=== PATIENT | male | born 1985 | race Hispanic/Latino ===

== ENCOUNTER 2017-08-24 17:27 | Emergency (ER) | payer SELFPAY ==
[2017-08-24] MEDS ORDERED: ASPIRIN PO ONE (17:38)
[2017-08-24 18:02] LABS: Basophils % (Auto) 0.8 % (0.0-1.8); Eosinophils # (Auto) 0.2 K/mm3 (0.0-0.4); Eosinophils % (Auto) 4.3 % (0.0-4.3); Hemoglobin 15.6 gm/dl (11.8-15.2); Lymphocytes # (Auto) 2.3 K/mm3 (1.2-5.4); Lymphocytes % (Auto) 44.4 % (13.4-35.0); Mean Corpuscular HGB Conc 33 % (32-34); Mean Corpuscular Hemoglobin 29 pg (28-32); Mean Corpuscular Volume 87 fl (84-94); Monocytes # (Auto) 0.6 K/mm3 (0.0-0.8); Monocytes % (Auto) 10.7 % (0.0-7.3); Platelet Count 216 K/mm3 (140-440); Red Cell Distribution Width 14.9 % (13.2-15.2)
[2017-08-24 18:19] LABS: BUN/Creatinine Ratio 24; Blood Urea Nitrogen 22 mg/dL (9-20); Calcium 9.9 mg/dL (8.4-10.2); Hemolysis Index 14
--- NOTE | 2017-08-24 21:17 | Emergency Department Report ---
ED General Adult HPI - General Chief complaint: Chest Pain Stated complaint: DIZZY/CHEST PRESSURE/WEAKNESS Time Seen by Provider: 08/24/17 21:01 Source: patient Mode of arrival: Ambulatory Limitations: Physical Limitation - History of Present Illness Initial comments: 32-year-old with some intermittent dizzy spells no black or bloody stool, does have history of opiate abuse takes Xanax for panic attacks. He is here for several complaints dizzy spells off-and-on for a week no black or bloody stool stasis was standing blood is not orthostatic now, also gets intermittent positional spinning and denies any recent alcohol and denies any recent tobacco and does have intermittent history of previous questionable other substances normal bowel no focal neuro complaints problems except he is constipated no syncope -: Gradual, days(s), unknown Radiation: non-radiation Associated Symptoms: weakness. denies: confusion, chest pain, cough, diaphoresis, fever/chills, headaches, loss of appetite, malaise, nausea/vomiting , rash, seizure, shortness of breath, syncope - Related Data Allergies Allergy/AdvReac Type Severity Reaction Status Date / Time morphine Allergy Unknown Verified 08/24/17 17:31 ED Review of Systems ROS: Stated complaint: DIZZY/CHEST PRESSURE/WEAKNESS Other details as noted in HPI Comment: All other systems reviewed and negative Constitutional: weakness. denies: chills, diaphoresis, fever, malaise Respiratory: denies: cough, orthopnea, shortness of breath, SOB with exertion, SOB at rest, stridor, wheezing Cardiovascular: denies: chest pain, palpitations, dyspnea on exertion, orthopnea , syncope, paroxysmal nocturnal dyspnea Gastrointestinal: denies: hematemesis, melena, hematochezia Musculoskeletal: denies: arthralgia, myalgia Neurological: denies: confusion, abnormal gait, vertigo Psychiatric: anxiety. denies: auditory hallucinations, visual hallucinations, homicidal thoughts, suicidal thoughts ED Past Medical Hx - Past Medical History Additional medical history: ANXIETY - Surgical History Past Surgical History?: No - Social History Smoking Status: Former Smoker Substance Use Type: None ED Physical Exam - General Limitations: Physical Limitation General appearance: alert, in no apparent distress, anxious - Head Head exam: Present: atraumatic, normocephalic - Eye Eye exam: Present: PERRL, EOMI Pupils: Present: mydriatic - ENT ENT exam: Present: normal exam, normal orophraynx - Neck Neck exam: Present: normal inspection. Absent: tenderness, meningismus - Respiratory Respiratory exam: Present: normal lung sounds bilaterally. Absent: respiratory distress, wheezes, rales, rhonchi, stridor, chest wall tenderness, accessory muscle use, decreased breath sounds, prolonged expiratory - Cardiovascular Cardiovascular Exam: Present: regular rate, normal rhythm, normal heart sounds. Absent: systolic murmur, diastolic murmur, rubs, gallop - GI/Abdominal GI/Abdominal exam: Present: soft. Absent: distended, tenderness, guarding, rebound, rigid, mass, pulsatile mass - Extremities Exam Extremities exam: Present: normal inspection, normal capillary refill. Absent: pedal edema, joint swelling, calf tenderness - Back Exam Back exam: Present: normal inspection. Absent: CVA tenderness (L), muscle spasm , paraspinal tenderness, vertebral tenderness - Neurological Exam Neurological exam: Present: oriented X3, CN II-XII intact. Absent: alert, motor sensory deficit - Skin Skin exam: Absent: diaphoretic, erythema, urticaria, vesicles, petechiae ED Course Vital Signs 08/24/17 17:33 Temperature 97.8 F Pulse Rate 91 H Respiratory 18 Rate Blood Pressure 146/82 O2 Sat by Pulse 100 Oximetry ED Medical Decision Making - Lab Data Result diagrams: 08/24/17 17:47 08/24/17 17:47 - EKG Data EKG shows normal: sinus rhythm - EKG Data Interpretation: no acute changes 08/24/17 22:21 No ischemic change - Radiology Data Radiology results: report reviewed - Medical Decision Making Patient is not orthostatic CT has no acute process EKG is normal sinus rhythm st -t changes, symptoms are vague and nonspecific does likely represent a positional vertigo. We started her on meclizine symptoms may also be multifactorial given his recent and intermittent drug use with his panic attacks. He is stable at this point of discharge. no emergent cardiopulmonary or neurologic processes identified that will require admission or further workup at this time he is at normal vital signs normal neuro exam, no cerebellar findings and nl ct, stabl eoutpt f/u Critical care attestation.: If time is entered above; I have spent that time in minutes in the direct care of this critically ill patient, excluding procedure time. ED Disposition Clinical Impression: Dizziness, Vertigo Disposition: DC-01 TO HOME OR SELFCARE Is pt being admited?: No Condition: Stable Instructions: Vertigo (ED), Dizziness (ED) Additional Instructions: medication as and instructed return If New Alarming Symptoms See That Doctor Listed Referrals: MARIPOSA HOLLINS MD [Primary Care Provider] - 3-5 Days Time of Disposition: 22:25
[2017-08-24] MEDS ORDERED: ANTIVERT PO ONE (21:19)
--- NOTE | 2017-08-24 21:44 | Cat Scan Report ---
FINAL REPORT EXAM: CT HEAD/BRAIN WO CON HISTORY: dizzy TECHNIQUE: Noncontrast CT axial images of the brain. PRIORS: None. FINDINGS: No parenchymal mass, mass effect, hemorrhage, midline shift or hydrocephalus. No evidence of acute cortical infarct. No abnormal, extra-axial fluid or air collection. Osseous calvarium grossly intact. IMPRESSION: 1. No acute intracranial findings.
[2017-08-24] MEDS ORDERED: XANAX PO ONE (23:12)
[2017-08-24 23:58] VITALS: BP 121/79
== END 2017-08-25 00:02 | disposition home or self-care (01) ==
LOC: ED 17:27
DX: R42 Dizziness and giddiness (principal); R53.1 Weakness
CPT/HCPCS: 36415; 70450; 80048; 84484; 85025; 93005; 93010

== ENCOUNTER 2017-08-28 11:53 | Emergency (ER) | payer OTHER ==
[2017-08-28 13:58] LABS: Basophils % (Auto) 0.7 % (0.0-1.8); Eosinophils # (Auto) 0.1 K/mm3 (0.0-0.4); Eosinophils % (Auto) 2.3 % (0.0-4.3); Hemoglobin 15.4 gm/dl (11.8-15.2); Lymphocytes % (Auto) 37.8 % (13.4-35.0); Mean Corpuscular HGB Conc 33 % (32-34); Mean Corpuscular Hemoglobin 29 pg (28-32); Mean Corpuscular Volume 88 fl (84-94); Monocytes # (Auto) 0.6 K/mm3 (0.0-0.8); Monocytes % (Auto) 11.2 % (0.0-7.3); Platelet Count 183 K/mm3 (140-440); Red Blood Count 5.36 M/mm3 (3.65-5.03); Red Cell Distribution Width 15.3 % (13.2-15.2)
[2017-08-28 14:19] LABS: BUN/Creatinine Ratio 21; Blood Urea Nitrogen 19 mg/dL (9-20); Calcium 9.9 mg/dL (8.4-10.2); Hemolysis Index 10
[2017-08-28 14:58] LABS: Bilirubin,Urine NEG (Negative); Blood,Urine NEG (Negative); Color,Urine Yellow (Yellow); Hyaline Casts,Urine 1 /LPF; Protein,Urine <15 mg/dL mg/dL (Negative); Urobilinogen,Urine < 2.0 mg/dL (<2.0)
[2017-08-28 15:05] LABS: Amphetamine Screen,Urine PRESUMPTIVE NEGATIVE; Benzodiazepines Screen,Urine PRESUMPTIVE NEGATIVE; Cannabinoid Screen,Urine PRESUMPTIVE NEGATIVE; Cocaine Screen,Urine PRESUMPTIVE NEGATIVE; Methadone Screen,Urine PRESUMPTIVE NEGATIVE; Opiate Screen,Urine PRESUMPTIVE NEGATIVE
--- NOTE | 2017-08-28 16:38 | Emergency Department Report ---
- General Chief complaint: Weakness Stated complaint: ANXIETY, ABD PAIN Time Seen by Provider: 08/28/17 16:29 Source: patient Mode of arrival: Ambulatory Limitations: Physical Limitation - History of Present Illness MD Complaint: lack of energy - Related Data Previous Rx's Medication Instructions Recorded Last Taken Type Meclizine [Antivert] 25 mg PO TID PRN #15 tablet 08/24/17 Unknown Rx Allergies Allergy/AdvReac Type Severity Reaction Status Date / Time morphine Allergy Unknown Verified 08/24/17 17:31 ED Review of Systems ROS: Stated complaint: ANXIETY, ABD PAIN Other details as noted in HPI ED Past Medical Hx - Past Medical History Additional medical history: ANXIETY - Surgical History Past Surgical History?: No - Social History Smoking Status: Former Smoker Substance Use Type: None - Medications Home Medications: Home Medications Medication Instructions Recorded Confirmed Last Taken Type Meclizine [Antivert] 25 mg PO TID PRN #15 tablet 08/24/17 Unknown Rx ED Physical Exam - General Limitations: Physical Limitation ED Course Vital Signs 08/28/17 12:11 Temperature 98.8 F Pulse Rate 91 H Respiratory 18 Rate Blood Pressure 130/76 O2 Sat by Pulse 98 Oximetry ED Medical Decision Making - Lab Data Result diagrams: 08/28/17 13:38 08/28/17 13:38 Critical care attestation.: If time is entered above; I have spent that time in minutes in the direct care of this critically ill patient, excluding procedure time. ED Disposition Condition: Stable Referrals: PRIMARY CARE [Primary Care Provider] - 3-5 Days
--- NOTE | 2017-08-28 17:18 | XRay Report ---
FINAL REPORT EXAM: XR CHEST ROUTINE 2V HISTORY: chest pain, weakness TECHNIQUE: Frontal and lateral chest x-ray. PRIORS: None. FINDINGS: Cardiac and mediastinal silhouette within normal limits. Lungs are normally expanded, without significant vascular congestion. No focal consolidation, pleural effusion or apparent pneumothorax. Mild dextroconvex curvature of thoracic spine. IMPRESSION: 1. No acute findings.
[2017-08-28] MEDS ORDERED: CATAPRES PO ONE (17:58)
--- NOTE | 2017-08-28 18:02 | Emergency Department Report ---
ED General Adult HPI - General Chief complaint: Weakness Stated complaint: ANXIETY, ABD PAIN Time Seen by Provider: 08/28/17 16:29 Source: patient Mode of arrival: Ambulatory Limitations: Physical Limitation - History of Present Illness Initial comments: Patient presents to the emergency department with multiple complaints. Patient is 3 weeks status post detox from opioids. Patient complains of having a sensation of dizziness and states that he feels like he is going to pass out. Patient also complains constipation as well as significant tremors. Patient denies any chest pain, shortness of breath, headache. Patient states that he was a chronic opioid abuser for 10 years - Related Data Previous Rx's Medication Instructions Recorded Last Taken Type Meclizine [Antivert] 25 mg PO TID PRN #15 tablet 08/24/17 Unknown Rx cloNIDine [Catapres] 0.1 mg PO QDAY #5 tablet 08/28/17 Unknown Rx Allergies Allergy/AdvReac Type Severity Reaction Status Date / Time morphine Allergy Unknown Verified 08/24/17 17:31 ED Review of Systems ROS: Stated complaint: ANXIETY, ABD PAIN Other details as noted in HPI Constitutional: denies: chills, fever Eyes: denies: eye pain, eye discharge, vision change ENT: denies: ear pain, throat pain Respiratory: denies: cough, shortness of breath, wheezing Cardiovascular: denies: chest pain, palpitations Endocrine: no symptoms reported Gastrointestinal: denies: abdominal pain, nausea, diarrhea Genitourinary: denies: urgency, dysuria Musculoskeletal: denies: back pain, joint swelling, arthralgia Skin: denies: rash, lesions Neurological: denies: headache, weakness, paresthesias Psychiatric: denies: anxiety, depression Hematological/Lymphatic: denies: easy bleeding, easy bruising ED Past Medical Hx - Past Medical History Additional medical history: ANXIETY - Surgical History Past Surgical History?: No - Social History Smoking Status: Former Smoker Substance Use Type: None - Medications Home Medications: Home Medications Medication Instructions Recorded Confirmed Last Taken Type Meclizine [Antivert] 25 mg PO TID PRN #15 tablet 08/24/17 Unknown Rx cloNIDine [Catapres] 0.1 mg PO QDAY #5 tablet 08/28/17 Unknown Rx ED Physical Exam - General Limitations: Physical Limitation General appearance: alert, in no apparent distress, other (patient has tremors on exam) - Head Head exam: Present: atraumatic, normocephalic - Eye Eye exam: Present: normal appearance - ENT ENT exam: Present: mucous membranes moist - Neck Neck exam: Present: normal inspection - Respiratory Respiratory exam: Present: normal lung sounds bilaterally. Absent: respiratory distress - Cardiovascular Cardiovascular Exam: Present: regular rate, normal rhythm. Absent: systolic murmur, diastolic murmur, rubs, gallop - GI/Abdominal GI/Abdominal exam: Present: soft, normal bowel sounds - Rectal Rectal exam: Present: deferred - Extremities Exam Extremities exam: Present: normal inspection - Back Exam Back exam: Present: normal inspection - Neurological Exam Neurological exam: Present: alert, oriented X3, other (patient has tremors on exam) - Psychiatric Psychiatric exam: Present: normal affect, normal mood - Skin Skin exam: Present: warm, dry, intact, normal color, other (patient also has flushing of skin). Absent: rash ED Course Vital Signs 08/28/17 08/28/17 08/28/17 12:11 18:26 19:35 Temperature 98.8 F 98.5 F Pulse Rate 91 H 84 61 Respiratory 18 18 16 Rate Blood Pressure 130/76 Blood Pressure 132/80 108/75 [Left] O2 Sat by Pulse 98 98 99 Oximetry ED Medical Decision Making - Lab Data Result diagrams: 08/28/17 13:38 08/28/17 13:38 - Medical Decision Making The patient was still at a rehabilitation facility and 5 days ago he was given Suboxone was made his symptoms worse Discussed results with the patient Critical care attestation.: If time is entered above; I have spent that time in minutes in the direct care of this critically ill patient, excluding procedure time. ED Disposition Clinical Impression: Withdrawal from opioids, Constipation Disposition: - TO HOME OR SELFCARE Is pt being admited?: No Does the pt Need Aspirin: No Condition: Stable Instructions: Constipation (ED), Opioid Withdrawal (ED) Additional Instructions: Return if symptoms become worse Prescriptions: cloNIDine [Catapres] 0.1 mg PO QDAY #5 tablet Referrals: PRIMARY CARE, [Primary Care Provider] - 3-5 Days SUSAN LYONS MD [Staff Physician] - 3-5 Days Time of Disposition: 20:00
--- NOTE | 2017-08-28 19:00 | XRay Report ---
FINAL REPORT EXAM: XR ABDOMEN 2V HISTORY: constipation TECHNIQUE: Supine and upright views of abdomen. PRIORS: None. FINDINGS: Moderate-large amount of retained stool. No significant bowel dilatation or abnormal air fluid levels. No apparent pneumoperitoneum. No abnormal calcifications. Probable phleboliths project in the bilateral lower pelvis. Mild S-shaped scoliotic change in thoracolumbar spine. IMPRESSION: 1. Nonobstructive bowel gas pattern and findings suggesting constipation.
[2017-08-28 19:41] VITALS: BP 108/75
== END 2017-08-28 20:44 | disposition home or self-care (01) ==
LOC: ED 11:53
DX: K59.00 Constipation, unspecified (principal); F11.23 Opioid dependence with withdrawal; Z88.6 Allergy status to analgesic agent; Z87.891 Personal history of nicotine dependence
CPT/HCPCS: 36415; 71046; 74019; 80048; 80307; 81001; 84436; 84443; 84484; 85025; 85379; 93005; 93010; 99284